=== PATIENT | female | born 1980 | race African-American/Black ===

== ENCOUNTER 2022-05-12 14:36 | Emergency (ER) | payer OTHER ==
[~2022-05-12] VITALS: Ht 160 cm; Wt 94.4 kg
[~2022-05-12 14:36] MED LIST: BIRTH CONTROL; CEPHALEXIN500 MG PO; CYCLOBENZAPRINE5 MG PO; KETOROLAC TROME10 MG PO; ONDANSETRON ODT4 MG PO; PRENATAL VITAM1 EAC6 PO; UNISOM SLEEPMEL25 MG PEG; VITAMIN B-625 MG PO
[2022-05-12] MEDS ORDERED: ONDANSETRON ODT4 MG PO (16:08)
[2022-05-12] MEDS ORDERED: IBUPROFEN200 MG PO (16:08)
[2022-05-12] MEDS ORDERED: THERAFLU FLU &1 EAC1 PO (16:08)
[2022-05-12] MEDS ORDERED: CEFDINIR300 MG PO (16:08)
[2022-05-12] MEDS ORDERED: ONDANSETRON HCL 4 MG ORAL DISINTEGRATING TAB PO ONE (16:15)
[2022-05-12] MEDS ORDERED: PREDNISONE 20 MG TAB PO ONE (16:15)
[2022-05-12] MEDS ORDERED: KETOROLAC TROMETHAMINE 30 MG/ML VIAL IM ONE (16:15)
[2022-05-12] MEDS ORDERED: ONDANSETRON HCL 4 MG ORAL DISINTEGRATING TAB ONE (16:31)
[2022-05-12] MEDS ORDERED: KETOROLAC TROMETHAMINE 30 MG/ML VIAL ONE (16:31)
[2022-05-12] MEDS ORDERED: PREDNISONE 20 MG TAB ONE (16:31)
== END 2022-05-12 16:27 | disposition home or self-care (01) ==
LOC: FSED 14:42 → MERGE 14:42 → FSED 16:27
DX: R05.9 Cough, unspecified (principal); J40 Bronchitis, not specified as acute or chronic; J06.9 Acute upper respiratory infection, unspecified; B34.9 Viral infection, unspecified
CPT/HCPCS: 81003; 81025; 83518; 87400; 93005; 96372; 99284; J1885; J7512; Q0126